=== PATIENT | male | born 1995 | race Caucasian/White ===

== ENCOUNTER 2021-12-21 10:57 | Emergency (ER) | payer OTHER ==
[~2021-12-21] VITALS: Ht 157.5 cm; Wt 62.0 kg
[2021-12-21 12:24] VITALS: BP 117/65
== END 2021-12-21 12:33 | disposition home or self-care (01) ==
LOC: EMS 11:03
DX: S91.119A Laceration without foreign body of unspecified toe without damage to nail, initial encounter (principal); X58.XXXA Exposure to other specified factors, initial encounter; Y93.11 Activity, swimming; Y92.89 Other specified places as the place of occurrence of the external cause; Y99.8 Other external cause status
CPT/HCPCS: 99283